=== PATIENT | female | born 1985 | race Caucasian/White ===

== ENCOUNTER → 2021-03-23 | Outpatient (CLI) | payer OTHER ==
--- NOTE | 2021-03-27 10:03 | MM ---
Reason for exam: clinical finding. Baseline mammogram. History: Patient is nulliparous. Physical Findings: Nurse Summary: 0.5cm nodule in the right breast and a 1.5cm nodule in the left breast (nurse dw). MG 3D Diag Mammo W/Cad SERENA Bilateral CC, MLO, and XCCL view(s) were taken. The breast tissue is heterogeneously dense. This may lower the sensitivity of mammography. 3.6cm circumscribed central isodense mass on the right. Palpable marker. Left upper outer quadrant 2.2cm lobulated mass. Suspect a 9mm low axillary tail node. These results were verbally communicated with the patient and result sheet given to the patient on 03/23/21. ASSESSMENT: Incomplete: need additional imaging evaluation, BI-RAD 0 RECOMMENDATION: Ultrasound of both breasts.
--- NOTE | 2021-03-27 10:06 | USB ---
Reason for exam: additional evaluation requested from abnormal screening. History: Patient is nulliparous. US Breast BILAT Right complete breast ultrasound includes all four quadrants, the retroareolar region and axilla. Finding demonstrates a 0.8 x 0.7 x 0.8cm mixed lesion at 3 o'clock, palpable, likely debris filled cyst, 6 month follow up recommended and a 3.3 x 1.1 x 2.4cm cystic, benign lesion at 8 o'clock. Left complete breast ultrasound includes all four quadrants, the retroareolar region and axilla. Finding demonstrates a 0.9 x 0.5 x 1.0cm cystic, benign cluster at 1 o'clock and a 2.5 x 1.3 x 2.0cm cystic lesion at 3 o'clock, palpable benign cyst. Multiple cystic areas bilaterally. These results were verbally communicated with the patient and result sheet given to the patient on 03/23/21. ASSESSMENT: Probably benign, BI-RAD 3 RECOMMENDATION: Ultrasound of the right breast in 6 months.
== END | disposition home or self-care (01) ==
LOC: RADMAMWWP 12:46
PROVIDERS: ATTEND Family Medicine
DX: N60.11 Diffuse cystic mastopathy of right breast (principal); N60.12 Diffuse cystic mastopathy of left breast; N63.10 Unspecified lump in the right breast, unspecified quadrant; N63.21 Unspecified lump in the left breast, upper outer quadrant
CPT/HCPCS: 77062; 77066

== ENCOUNTER 2021-09-27 20:20 | Emergency (ER) | payer OTHER ==
[2021-09-27] MEDS ORDERED: MORPHINE SULFATE 4 MG/ML SYRINGE IV STA (21:56)
[2021-09-27] MEDS ORDERED: ONDANSETRON 4 MG/2 ML VIAL IVP STA (21:56)
--- NOTE | 2021-09-27 22:07 | ED ---
Abdominal Pain HPI - General Chief Complaint: Abdominal Pain Stated Complaint: Left Side Abdominal Pain Time Seen by Provider: 09/27/21 21:21 Source: patient Mode of arrival: ambulatory Limitations: no limitations - History of Present Illness Initial Comments: This patient is a 36-year-old woman who presents with complaint of left flank pain that started around 3 PM while she was at rest. There was no inciting trauma. She describes it as being sharp, colicky, severe. She has not noted worsening or relieving factors. Patient states somewhat similar to previous episode a kidney stone. She also has had some nausea and has vomited. MD Complaint: flank pain Onset/Timin -: hour(s) Location: L flank Radiation: LLQ Migration to: no migration Severity: severe Quality: sharp Consistency: constant Improves With: nothing Worsens With: nothing Associated Symptoms: nausea, vomiting - Related Data LMP (females 10-50): this week Previous Rx's Medication Instructions Recorded HYDROcodone/APAP 5-325MG [[place] 1 tab PO Q4HR PRN 3 Days #18 tab 09/28/21 5-325] Ondansetron Odt [Zofran ODT] 4 mg PO Q8HR PRN #10 tab 09/28/21 Tamsulosin [Flomax] 0.4 mg PO DAILY #14 cap 09/28/21 Allergies Allergy/AdvReac Type Severity Reaction Status Date / Time No Known Allergies Allergy Verified 09/27/21 20:33 Review of Systems ROS Statement: Those systems with pertinent positive or pertinent negative responses have been documented in the HPI. ROS Other: All systems not noted in ROS Statement are negative. Constitutional: Denies: fever, chills Respiratory: Denies: cough, dyspnea Cardiovascular: Denies: chest pain, palpitations, edema Gastrointestinal: Reports: abdominal pain, nausea, vomiting. Denies: diarrhea, constipation Genitourinary: Denies: dysuria, hematuria Musculoskeletal: Denies: back pain Skin: Denies: rash Neurological: Denies: headache, weakness, numbness Past Medical History Past Medical History: Diabetes Mellitus Additional Past Medical History / Comment(s): DMII History of Any Multi-Drug Resistant Organisms: None Reported Past Surgical History: No Surgical Hx Reported Past Psychological History: No Psychological Hx Reported Smoking Status: Never smoker Past Alcohol Use History: None Reported Past Drug Use History: None Reported General Exam Limitations: no limitations General appearance: alert, in no apparent distress Head exam: Present: atraumatic, normocephalic Eye exam: Present: normal appearance. Absent: scleral icterus, conjunctival injection Neck exam: Present: normal inspection Respiratory exam: Present: normal lung sounds bilaterally. Absent: respiratory distress, wheezes, rales, rhonchi, stridor Cardiovascular Exam: Present: regular rate, normal rhythm, normal heart sounds. Absent: systolic murmur, diastolic murmur, rubs, gallop GI/Abdominal exam: Present: soft. Absent: distended, tenderness, guarding, rebound, rigid, mass Extremities exam: Present: normal inspection, normal capillary refill. Absent: pedal edema, calf tenderness Back exam: Present: normal inspection, CVA tenderness (L). Absent: CVA tenderness (R) Neurological exam: Present: alert Skin exam: Present: warm, dry, intact, normal color. Absent: rash Course Vital Signs 09/27/21 09/28/21 20:27 00:43 Temperature 97.8 F Pulse Rate 61 Respiratory 22 20 Rate Blood Pressure 135/75 129/79 O2 Sat by Pulse 100 Oximetry Medical Decision Making - Lab Data Result diagrams: 09/27/21 22:05 09/27/21 22:05 Lab Results 09/27/21 09/27/21 09/27/21 Range/Units 22:05 22:05 22:45 WBC 11.1 H (3.8-10.6) k/uL RBC 4.96 (3.80-5.40) m/uL Hgb 13.9 (11.4-16.0) gm/dL Hct 42.7 (34.0-46.0) % MCV 86.1 (80.0-100.0) fL MCH 27.9 (25.0-35.0) pg MCHC 32.4 (31.0-37.0) g/dL RDW 12.2 (11.5-15.5) % Plt Count 260 (150-450) k/uL MPV 7.8 Neutrophils % 88 % Lymphocytes % 9 % Monocytes % 2 % Eosinophils % 0 % Basophils % 0 % Neutrophils # 9.8 H (1.3-7.7) k/uL Lymphocytes # 1.0 (1.0-4.8) k/uL Monocytes # 0.3 (0-1.0) k/uL Eosinophils # 0.0 (0-0.7) k/uL Basophils # 0.0 (0-0.2) k/uL Sodium 133 L (137-145) mmol/L Potassium 3.6 (3.5-5.1) mmol/L Chloride 101 (98-107) mmol/L Carbon Dioxide 20 L (22-30) mmol/L Anion Gap 12 mmol/L BUN 17 (7-17) mg/dL Creatinine 0.83 (0.52-1.04) mg/dL Est GFR (CKD-EPI)AfAm >90 (>60 ml/min/1.73 sqM) Est GFR (CKD-EPI)NonAf >90 (>60 ml/min/1.73 sqM) Glucose 270 H (74-99) mg/dL Calcium 9.2 (8.4-10.2) mg/dL Total Bilirubin 0.5 (0.2-1.3) mg/dL AST 30 (14-36) U/L ALT 20 (4-34) U/L Alkaline Phosphatase 69 (38-126) U/L Total Protein 7.4 (6.3-8.2) g/dL Albumin 4.5 (3.5-5.0) g/dL Amylase 57 (30-110) U/L Lipase 57 (23-300) U/L Urine Color Yellow Urine Appearance Clear (Clear) Urine pH 5.5 (5.0-8.0) Ur Specific [place] 1.033 (1.001-1.035) Urine Protein Trace H (Negative) Urine Glucose (UA) 4+ H (Negative) Urine Ketones 4+ H (Negative) Urine Blood Large H (Negative) Urine Nitrite Negative (Negative) Urine Bilirubin Negative (Negative) Urine Urobilinogen <2.0 (<2.0) mg/dL Ur Leukocyte Esterase Negative (Negative) Urine RBC >182 H (0-5) /hpf Urine WBC 13 H (0-5) /hpf Ur Squamous Epith Cells 3 (0-4) /hpf Urine Bacteria Occasional H (None) /hpf Urine Mucus Rare H (None) /hpf Urine HCG, Qual (Not Detectd) Acetone, Qual Negative (Negative) 09/27/21 Range/Units 22:45 WBC (3.8-10.6) k/uL RBC (3.80-5.40) m/uL Hgb (11.4-16.0) gm/dL Hct (34.0-46.0) % MCV (80.0-100.0) fL MCH (25.0-35.0) pg MCHC (31.0-37.0) g/dL RDW (11.5-15.5) % Plt Count (150-450) k/uL MPV Neutrophils % % Lymphocytes % % Monocytes % % Eosinophils % % Basophils % % Neutrophils # (1.3-7.7) k/uL Lymphocytes # (1.0-4.8) k/uL Monocytes # (0-1.0) k/uL Eosinophils # (0-0.7) k/uL Basophils # (0-0.2) k/uL Sodium (137-145) mmol/L Potassium (3.5-5.1) mmol/L Chloride (98-107) mmol/L Carbon Dioxide (22-30) mmol/L Anion Gap mmol/L BUN (7-17) mg/dL Creatinine (0.52-1.04) mg/dL Est GFR (CKD-EPI)AfAm (>60 ml/min/1.73 sqM) Est GFR (CKD-EPI)NonAf (>60 ml/min/1.73 sqM) Glucose (74-99) mg/dL Calcium (8.4-10.2) mg/dL Total Bilirubin (0.2-1.3) mg/dL AST (14-36) U/L ALT (4-34) U/L Alkaline Phosphatase (38-126) U/L Total Protein (6.3-8.2) g/dL Albumin (3.5-5.0) g/dL Amylase (30-110) U/L Lipase (23-300) U/L Urine Color Urine Appearance (Clear) Urine pH (5.0-8.0) Ur Specific [place] (1.001-1.035) Urine Protein (Negative) Urine Glucose (UA) (Negative) Urine Ketones (Negative) Urine Blood (Negative) Urine Nitrite (Negative) Urine Bilirubin (Negative) Urine Urobilinogen (<2.0) mg/dL Ur Leukocyte Esterase (Negative) Urine RBC (0-5) /hpf Urine WBC (0-5) /hpf Ur Squamous Epith Cells (0-4) /hpf Urine Bacteria (None) /hpf Urine Mucus (None) /hpf Urine HCG, Qual Not Detected (Not Detectd) Acetone, Qual (Negative) Disposition Clinical Impression: Kidney stone Disposition: HOME SELF-CARE Condition: Good Instructions (If sedation given, give patient instructions): Kidney Stones (ED) Prescriptions: Tamsulosin [Flomax] 0.4 mg PO DAILY #14 cap HYDROcodone/APAP 5-325MG [[place] 5-325] 1 tab PO Q4HR PRN 3 Days #18 tab PRN Reason: Pain Ondansetron Odt [Zofran ODT] 4 mg PO Q8HR PRN #10 tab PRN Reason: Nausea Is patient prescribed a controlled substance at d/c from ED?: No Referrals: Geoff Leonard MD [Primary Care Provider] - 1-2 days Darryl Parish MD [STAFF PHYSICIAN] - 1-2 days
[2021-09-27 22:34] LABS: Basophils % (A) 0 %; Eosinophils % (A) 0 %; HCT 42.7 % (34.0-46.0); HGB 13.9 gm/dL (11.4-16.0); Lymphocytes % (A) 9 %; MCH 27.9 pg (25.0-35.0); MCHC 32.4 g/dL (31.0-37.0); MCV 86.1 fL (80.0-100.0); Mean Platelet Volume 7.8; Monocytes # (A) 0.3 k/uL (0-1.0); Monocytes % (A) 2 %; Neutrophils # (A) 9.8 k/uL (1.3-7.7); Neutrophils % (A) 88 %; Platelet Count 260 k/uL (150-450); RBC 4.96 m/uL (3.80-5.40); RDW 12.2 % (11.5-15.5); WBC 11.1 k/uL (3.8-10.6)
[2021-09-27 22:46] LABS: ALT 20 U/L (4-34); AST 30 U/L (14-36); African American GFR (CKD) >90 (>60 ml/min/1.73 sqM); Albumin 4.5 g/dL (3.5-5.0); Alkaline Phosphatase 69 U/L (38-126); Amylase 57 U/L (30-110); Anion Gap 12 mmol/L; Blood Urea Nitrogen 17 mg/dL (7-17); Calcium 9.2 mg/dL (8.4-10.2); Carbon Dioxide 20 mmol/L (22-30); Chloride 101 mmol/L (98-107); Glucose 270 mg/dL (74-99); Lipase 57 U/L (23-300); Non-African American GFR(CKD) >90 (>60 ml/min/1.73 sqM); Potassium 3.6 mmol/L (3.5-5.1); Sodium 133 mmol/L (137-145); Total Bilirubin 0.5 mg/dL (0.2-1.3); Total Protein 7.4 g/dL (6.3-8.2)
[2021-09-27] MEDS ORDERED: INSULIN REGULAR 100 UNIT/ML VIAL (IV) SQ STA (22:50)
[2021-09-27 22:57] LABS: Appearance,Urine Clear (Clear); Bacteria,Urine Occasional /hpf; Bilirubin,Urine Negative (Negative); Blood,Urine Large (Negative); Color,Urine Yellow; Leukocyte Esterase,Urine Negative (Negative); Mucus,Urine Rare /hpf; Nitrite,Urine Negative (Negative); PH, Urine 5.5 (5.0-8.0); Protein,Urine Trace (Negative); RBC,Urine >182 /hpf (0-5); Specific Gravity,Urine 1.033 (1.001-1.035); Squamous Epithelial Cell,Urine 3 /hpf (0-4); Urobilinogen,Urine <2.0 mg/dL (<2.0); WBC,Urine 13 /hpf (0-5)
[2021-09-27 23:05] LABS: Glucose,Urine (UA) 4+ (Negative); Ketones,Urine 4+ (Negative)
--- NOTE | 2021-09-28 00:13 | CT ---
EXAMINATION TYPE: CT abdomen pelvis wo con DATE OF EXAM: 09/27/2021 COMPARISON: None HISTORY: left side abdominal pain. rule out renal stone. no prior on PACS CT DLP: 581.5 mGycm Automated exposure control for dose reduction was used. Images obtained with no contrast from the diaphragm to the level of the pelvis. Lung bases are clear. No pleural effusion. Heart size is normal. No pericardial effusion. Liver spleen stomach pancreas gallbladder appear intact. The bile ducts are not dilated. There is no adrenal mass. Kidneys of normal size. There is left-sided hydronephrosis with 7 mm obstru cting calculus proximal left ureter. No sign of obstruction on the right side. No retroperitoneal reno nopathy. Appendix is posterior and appears normal. The bladder distends smoothly. There is a 4 cm cyst on the right ovary. Uterus is anteverted. No free fluid in the pelvis. No inguinal hernia. There is no mesenteric edema. No ascites or free air. No bowel obstruction. Lumbar vertebra. Tach. No compression fracture. There is normal alignment of the vertebra. Disc spaces are normal. Bony pelvis is intact. The hip joints are intact. IMPRESSION: Obstructing calculus proximal left ureter. Normal appendix. 4 cm right ovarian cyst.
[2021-09-28] MEDS ORDERED: ONDANSETRON 4 MG/2 ML VIAL IVP STA (00:29)
[2021-09-28] MEDS ORDERED: MORPHINE SULFATE 4 MG/ML SYRINGE IV STA (00:29)
[2021-09-28] MEDS ORDERED: TAMSULOSIN 0.4 MG CAP.ER.24H PO STA (00:49)
[2021-09-28] MEDS ORDERED: HYDROmorphone 0.5 MG/0.5 ML SYRINGE IVP STA (01:01)
[2021-09-28] MEDS ORDERED: ACET/COD 300 MG/30 MG STARTER PACK 6 TAB BTL PO STA (02:22)
[2021-09-28 03:15] VITALS: BP 106/74; PULSE 74; RESP 15; TEMP 97.5
== END 2021-09-28 03:05 | disposition home or self-care (01) ==
LOC: EC 20:20
DX: N13.2 Hydronephrosis with renal and ureteral calculous obstruction (principal); E11.9 Type 2 diabetes mellitus without complications
CPT/HCPCS: 36415; 80053; 82150; 82009; 83690; 85025; 81001; 81025; 87086; 74176; 99284; 96374; 96375 ×2; 96376 ×2; J2270; J2405

== ENCOUNTER 2021-09-29 14:09 | Day surgery (SDC) | payer OTHER ==
--- NOTE | 2021-09-29 13:26 | P.GSHP ---
History of Present Illness H&P Date: 09/29/21 Chief Complaint: Left renal colic The patient is a 36-year-old white female with no prior history of urolithiasis. On 09/27/2021 she experienced acute onset of left flank pain and left lower quadrant abdominal pain. CT scan of the abdomen and pelvis revealed left hydronephrosis due to a 7 mm left proximal ureteral calculus. Her symptoms have been intractable since that time. KUB x-ray today suggests that the calculus is migrated to the distal ureter. The pros and cons of medical expulsion therapy, ESWL, and ureteroscopic stone manipulation have been reviewed with the patient in detail. She has elected to undergo the latter. - Constitutional Constitutional: Reports chills, Denies fever - Gastrointestinal Gastrointestinal: Reports nausea, Reports vomiting - Genitourinary (Female) Genitourinary: Reports flank pain, Reports kidney stones, Denies hematuria Past Medical History Past Medical History: Diabetes Mellitus Additional Past Medical History / Comment(s): DMII History of Any Multi-Drug Resistant Organisms: None Reported Past Surgical History: No Surgical Hx Reported Past Psychological History: No Psychological Hx Reported Smoking Status: Never smoker Past Alcohol Use History: None Reported Past Drug Use History: None Reported Medications and Allergies Home Medications Medication Instructions Recorded Confirmed Type HYDROcodone/APAP 5-325MG [[place] 1 tab PO Q4HR PRN 3 Days #18 tab 09/28/21 Rx 5-325] HYDROcodone/APAP 5-325MG [[place] 5] 1 each PO Q6HR PRN #12 tab 09/28/21 Rx Ondansetron Odt [Zofran ODT] 4 mg PO Q8HR PRN #10 tab 09/28/21 Rx Ondansetron Odt [Zofran Odt] 4 mg PO Q8HR PRN #10 tab 09/28/21 Rx Tamsulosin [Flomax] 0.4 mg PO DAILY #14 cap 09/28/21 Rx Tamsulosin [Flomax] 0.4 mg PO DAILY #7 cap 09/28/21 Rx Allergies Allergy/AdvReac Type Severity Reaction Status Date / Time No Known Allergies Allergy Verified 09/27/21 20:33 Surgical - Exam - General well developed, well nourished, moderate distress - Neck no masses, trachea midline - Respiratory normal respiratory effort - Abdomen Abdomen: soft, non tender, no guarding, no rigid, no rebound - Psychiatric oriented to time, oriented to person, oriented to place, speech is normal, memory intact Results - Imaging Abdominal x-ray: report reviewed, image reviewed CT scan - abdomen: report reviewed, image reviewed Assessment and Plan (1) Calculus of ureter Status: Acute Code(s): N20.1 - CALCULUS OF URETER SNOMED Code(s): 75564501 Plan: Cystoscopy, left retrograde pyelogram. If indeed the calculus has migrated to the distal ureter, left ureteroscopy with laser lithotripsy, possible stone basketing, left ureteral stent insertion will be performed. Conversely, if the calculus remains within the proximal ureter, she will simply undergo left ureteral stent insertion. The procedure has been reviewed in detail with the patient. She has been made aware of potential risks, which include anesthesia, bleeding, infection, inability to remove the calculus, and ureteral injury.
[2021-09-29 14:47] LABS: Glucose,Whole Blood 204 mg/dL (70-110)
[2021-09-29] MEDS ORDERED: ONDANSETRON 4 MG/2 ML VIAL ONE (14:49)
[2021-09-29] MEDS ORDERED: LACTATED RINGERS 1,000 ML IV ONE ×2 (14:52→16:31)
[2021-09-29] MEDS ORDERED: INSULIN ASPART (NovoLOG) 100 UNIT/ML VIAL SQ ONE (14:58)
[2021-09-29] MEDS ORDERED: SCOPOLAMINE 1 MG/72 HR PATCH TRANSDERM ONE (14:58)
[2021-09-29] MEDS ORDERED: DEXAMETHASONE SOD PHOSPHATE 4 MG/ML 1 ML VIAL IV ONE (14:58)
[2021-09-29] MEDS ORDERED: SUCCINYLCHOLINE CHLORIDE 100 MG/5 ML SYR IV ONE (15:41)
[2021-09-29] MEDS ORDERED: KETOROLAC 15 MG/ML 1 ML VIAL ONE (15:41)
[2021-09-29] MEDS ORDERED: MIDAZOLAM 2 MG/2 ML VIAL ONE (15:41)
[2021-09-29] MEDS ORDERED: LIDOCAINE 2% INJ 20 MG/ML (2 ML VIAL) ONE (15:41)
[2021-09-29] MEDS ORDERED: PROPOFOL 10 MG/ML 20 ML VIAL IV ONE (15:41)
[2021-09-29] MEDS ORDERED: fentaNYL (PF) 50 MCG/ML 2 ML AMP ONE (15:41)
[2021-09-29] MEDS ORDERED: IOPAMIDOL-300 50ML BTL MISCELLANE ONE (16:22)
--- NOTE | 2021-09-29 16:57 | FL ---
Fluoroscopy History: Cystoscopy FLUORO TIME 17SECONDS
--- NOTE | 2021-09-29 16:58 | P.OP ---
Date of Procedure: 09/29/21 Preoperative Diagnosis: Left ureteral calculus Postoperative Diagnosis: Same Procedure(s) Performed: Cystoscopy, left ureteroscopy with Holmium laser lithotripsy and stone basketing, left ureteral stent insertion Anesthesia: AMANDA Surgeon: Darryl Parish Estimated Blood Loss (ml): 0 IV fluids (ml): 700 Pathology: other (Calculus fragments, sent for chemical analysis) Condition: stable Disposition: PACU Indications for Procedure: The patient is a 36-year-old white female with no prior history of urolithiasis. On 09/27/2021 she experienced acute onset of left flank pain and left lower quadrant abdominal pain. CT scan of the abdomen and pelvis revealed left hydronephrosis due to a 7 mm left proximal ureteral calculus. Her symptoms have been intractable since that time. KUB x-ray today suggests that the calculus is migrated to the distal ureter. The pros and cons of medical expulsion therapy, ESWL, and ureteroscopic stone manipulation have been reviewed with the patient in detail. She has elected to undergo the latter. 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 Left distal ureteral calculus, fragmented and removed completely. Description of Procedure: The patient was taken to the operating room and placed in the dorsolithotomy position, with legs supported in Rj stirrups. The external genitalia was prepped and draped sterilely. The 30 lens was used to introduce the 21-Cymro Montoya cystoscopic sheath through the urethra and into the bladder under direct vision. The bladder was examined in its entirety. The right ureteral orifice appeared normal, and clear urine effluxed from it. The left ureteral orifice was extremely small and difficult to identify. She appears to have a an orthotopic ureterocele on the left. No tumors or foreign bodies were seen. An angle-tip 0.035 inch Glidewire was passed through the cystoscope. Multiple attempts were made to identify and cannulate the left ureteral orifice, but these attempts were unsuccessful. The Montoya semirigid ureteroscope was advanced into the bladder, and a 0.035 inch Glidewire was passed through the ureteroscope. The anticipated area of the left ureteral orifice was carefully inspected, and ultimately a small opening was identified through which the Glidewire was advanced. The Glidewire passed beyond the calculus and up to the left renal pelvis. A 15-Cymro balloon dilating catheter (4 cm length) was used to dilate the ureteral orifice and the intramural portion of the ureter. It was then possible to advance the ureteroscope up to the level of the calculus. The 365 micron Holmium laser probe was passed through the ureteroscope, and lithotripsy was performed. After fragmenting the calculus, a 1.9-Cymro nitinol basket was used to remove all of the calculus fragments from the ureter. These were saved and sent for chemical analysis. Inspection of the ureter revealed no residual calculus fragments. There was no evidence of ureteral perforation. After removing the ureteroscope, the cystoscope was replaced into the bladder. The Glidewire was passed up to the left renal pelvis, and a 24 cm, 4.8-Cymro double-J ureteral stent was placed over the wire. Proper stent positioning was verified fluoroscopically and endoscopically. The bladder was emptied and the cystoscope removed. The patient tolerated the procedure well and was taken to the recovery room in stable condition. [facility] [place] Report: Procedure Acuity: Urgent Stone Size and Location: 7 mm, left distal ureter Ureteral Dilation: Balloon Dilation Ureteral Access Sheath Used: No Stone Sent for Analysis: Yes All Stones/Fragments Were Removed with a Basket: Yes Complications: No Preoperative Antibiotics Given: Yes Stent Placed: Yes If Stent Placed, Was String Left Attached: No If Stent Placed, When is it to be Removed: 2 weeks Discharge Medications: Tamsulosin, oxybutynin chloride
[2021-09-29 17:03] VITALS: RESP 16; TEMP 97.6
[2021-09-29 17:21] LABS: Glucose,Whole Blood 167 mg/dL (70-110)
[2021-09-29 18:21] VITALS: BP 122/73; PULSE 87
== END 2021-09-29 18:39 | disposition home or self-care (01) ==
LOC: OR 14:09
PROVIDERS: ATTEND Urology
DX: N13.2 Hydronephrosis with renal and ureteral calculous obstruction (principal); E11.9 Type 2 diabetes mellitus without complications; Z79.899 Other long term (current) drug therapy; Z79.4 Long term (current) use of insulin
CPT/HCPCS: 81025; 82365; 52356; C2625; C1769; J2250; J1100; J0690; J3010; J1885; J0330; J2704; Q9967; J2001

== ENCOUNTER → 2021-09-29 | Outpatient (CLI) | payer OTHER ==
--- NOTE | 2021-09-29 12:09 | XR ---
KUB HISTORY: Left-sided ureteral stone, N [address] scan 09/27/2021 There is a insulin pump situated over the left hemiabdomen, pump and dilated loops of bowel could obs cure underlying detail. Allograft suspect the mid ureteral calculus on the left has migrated to the l evel the ureterovesical orifice and measures approximately 7 mm in size. There are phleboliths within the left hemipelvis. No evident bowel obstruction or pneumoperitoneum. There is overlying artifact. IMPRESSION: Migration of ureteral calculus distally is suspected
== END | disposition home or self-care (01) ==
LOC: RADXRMAIN 11:19
PROVIDERS: ATTEND Urology
DX: N20.1 Calculus of ureter (principal)
CPT/HCPCS: 74018

== ENCOUNTER → 2021-11-14 | Outpatient (CLI) | payer OTHER ==
--- NOTE | 2021-11-14 16:24 | US ---
EXAMINATION TYPE: US kidneys/renal and bladder DATE OF EXAM: 11/14/2021 COMPARISON: CT 09/27/2021 CLINICAL HISTORY: N20.1 CALCULUS OF URETER. Left ureter stone, hydronephrosis EXAM MEASUREMENTS: Right Kidney: 10.9 x 5.1 x 4.5 cm Left Kidney: 11.8 x 4.5 x 5.0 cm Right Kidney: No obvious stones, mild hydronephrosis seen Left Kidney: No hydronephrosis or masses seen Bladder: Distended, Bilateral Jets seen: Yes There is no evidence for hydronephrosis at this point in time. No nephrolithiasis is seen. No karen s are identified. The urinary bladder is anechoic. Bilateral ureteral jets are seen. IMPRESSION: Mild right hydronephrosis No evidence for obstructive stone. No evidence of left obstructive uropathy.
== END | disposition home or self-care (01) ==
LOC: RADUSWWP 15:37
PROVIDERS: ATTEND Urology
DX: N13.2 Hydronephrosis with renal and ureteral calculous obstruction (principal)
CPT/HCPCS: 76770

== ENCOUNTER → 2021-12-06 | Outpatient (CLI) | payer OTHER ==
--- NOTE | 2021-12-06 09:02 | USB ---
Reason for Exam: Follow-up at short interval from prior study. Patient History: Menarche at age 11. Patient has no children. Risk Values: Gabby 5 year model risk: 0.4%. NCI Lifetime model risk: 11.2%. Technique: Method: Targeted. Prior Study Comparison: 03/23/2021 Bilateral Diagnostic Mammogram, [facility]. Findings: The lower inner quadrant of the right breast was scanned. Complex cyst at the right 3:00 position is again noted however smaller in size and currently measures 5 x 4 mm versus 8 x 7 mm previously. Continued six-month follow-up is advised. No additional lesions seen.. Overall Assessment: Probably benign, BI-RAD 3 Management: Diagnostic Breast Ultrasound of the right breast in 6 months. A clinical breast exam by your physician is recommended on an annual basis and results should be correlated with mammographic findings. Electronically signed and approved by: Seamus Jacobsen M.D. Radiologis
== END | disposition home or self-care (01) ==
LOC: RADMAMWWP 08:16
PROVIDERS: ATTEND Family Medicine
DX: N60.01 Solitary cyst of right breast (principal)

== ENCOUNTER → 2022-07-02 | Outpatient (CLI) | payer OTHER ==
--- NOTE | 2022-07-02 08:27 | USB ---
Reason for Exam: Follow-up at short interval from prior study. Patient History: Menarche at age 11. Patient has no children. Risk Values: Gabby 5 year model risk: 0.5%. NCI Lifetime model risk: 11.2%. Technique: Method: Targeted. Prior Study Comparison: 03/23/2021 Bilateral Diagnostic Mammogram, [facility]. Findings: The lower inner quadrant of the right breast, the axilla of the right breast and the retroareolar of the right breast were scanned. Stable complex cystic lesion right 3:00 measuring 5 x 4 mm versus 5 x 4 mm previously. No solid mass is detected at this time.. Overall Assessment: Probably benign, BI-RAD 3 Management: Diagnostic Breast Ultrasound of the right breast in 6 months. A clinical breast exam by your physician is recommended on an annual basis and results should be correlated with mammographic findings. This exam should not preclude additional follow-up of suspicious palpable abnormalities. Results were given to the patient verbally at the time of exam. Electronically signed and approved by: Seamus Jacobsen M.D. Radiologis
== END | disposition home or self-care (01) ==
LOC: RADUSWWP 07:34
PROVIDERS: ATTEND Family Medicine
DX: R92.8 Other abnormal and inconclusive findings on diagnostic imaging of breast (principal)

== ENCOUNTER → 2023-01-04 | Outpatient (CLI) | payer OTHER ==
--- NOTE | 2023-01-04 08:22 | USB ---
Reason for Exam: Follow-up at short interval from prior study. Patient History: Menarche at age 11. Patient has no children. Risk Values: Gabby 5 year model risk: 0.5%. NCI Lifetime model risk: 11.2%. Technique: Method: Targeted. Prior Study Comparison: 03/23/2021 Bilateral Diagnostic Mammogram, [facility]. Findings: The lower inner quadrant of the right breast and the retroareolar of the right breast were scanned. 2 small to characterize hypoechoic lesion right breast 3:00 position 3 cm from the nipple measuring 4 x 3 mm versus 5 x 4 mm previously. Simple cyst right 7:00 position measuring 1.4 cm.. Overall Assessment: Probably benign, BI-RAD 3 Management: Diagnostic Breast Ultrasound of the right breast in 6 months. A clinical breast exam by your physician is recommended on an annual basis and results should be correlated with mammographic findings. This exam should not preclude additional follow-up of suspicious palpable abnormalities. Results were given to the patient verbally at the time of exam. Electronically signed and approved by: Seamus Jacobsen M.D. Radiologis
== END | disposition home or self-care (01) ==
LOC: RADUSWWP 07:38
PROVIDERS: ATTEND Family Medicine
DX: N60.01 Solitary cyst of right breast (principal); R93.89 Abnormal findings on diagnostic imaging of other specified body structures

== ENCOUNTER → 2023-07-26 | Outpatient (CLI) | payer OTHER ==
--- NOTE | 2023-07-26 08:18 | MM ---
Reason for Exam: Clinical finding. Last mammogram was performed 2 year(s) and 4 month(s) ago. Indicated Problems: Lump or thickening of the right side for 2 Year(s). Patient History: Menarche at age 11. Patient has no children. Risk Values: Gabby 5 year model risk: 0.6%. NCI Lifetime model risk: 11.1%. Prior Study Comparison: 03/23/2021 Bilateral Diagnostic Mammogram, [facility]. 03/23/2021 Bilateral Diagnostic Ultrasound, [facility]. 12/06/2021 Right US breast limited RT, [facility]. 07/02/2022 Right US breast limited RT, [facility]. 01/04/2023 Right US breast limited RT, [facility]. Tissue Density: The breasts are heterogeneously dense, which may obscure small masses. Findings: Analyzed By CAD. Underlying bilateral circumscribed nodularity. The nodule on the left, laterally is smaller now measuring 1.1 cm versus 1.8 cm, previously. There are 3-4 nodules on the right side now demonstrated. The dominant nodule, suspected 12:00 position is smaller 1.7 cm now versus 3.6 cm, previously. However, new nodules are now apparent not well seen previously. No suspicious microcalcification or other discrete abnormality seen. Overall Assessment: Incomplete: need additional imaging evaluation, BI-RAD 0 Management: Diagnostic Breast Ultrasound of the right breast. Electronically signed and approved by: Parvin Maicel M.D. Radiologist
--- NOTE | 2023-07-26 08:45 | USB ---
Reason for Exam: Follow-up at short interval from prior study. Patient History: Menarche at age 11. Patient has no children. Risk Values: Gabby 5 year model risk: 0.6%. NCI Lifetime model risk: 11.1%. Technique: Method: Whole Breast Handheld. Doppler: Color. Patient Position: Supine. Prior Study Comparison: 03/23/2021 Bilateral Diagnostic Mammogram, [facility]. 12/06/2021 Right US breast limited RT, [facility]. 07/02/2022 Right US breast limited RT, [facility]. 01/04/2023 Right US breast limited RT, [facility]. Findings: The whole breast of the right breast, the axilla of the right breast and the retroareolar of the right breast were scanned. A complete US of all four quadrants of the breast , axilla, and retro-areolar region were reviewed. Numerous cysts are present throughout the breast, largest at the 10:00 position, 7 cm from the nipple measuring 3.2 x 2.7 x 1.1 cm versus 3.3 cm, previously. Within the axilla, there is ar borderline sized lymph node measuring 2.3 x 1.7 x 0.6 cm. Mild cortical thickening up to 3.5 mm. Probably reactive/post inflammatory. Short interval follow-up to reassess. Overall Assessment: Probably benign, BI-RAD 3 Management: Diagnostic Breast Ultrasound of the right breast in 3 months. For the probable reactive/post inflammatory right axillary lymph node. If any of the patient's cysts become symptomatic, percutaneous aspiration can be performed. A clinical breast exam by your physician is recommended on an annual basis and results should be correlated with mammographic findings. This exam should not preclude additional follow-up of suspicious palpable abnormalities. Results were given to the patient verbally at the time of exam. Electronically signed and approved by: Parvin Maciel M.D. Radiologist
== END | disposition home or self-care (01) ==
LOC: RADMAMWWP 07:51
PROVIDERS: ATTEND Family Medicine
DX: R92.333 Mammographic heterogeneous density, bilateral breasts (principal); N63.10 Unspecified lump in the right breast, unspecified quadrant
CPT/HCPCS: 77062; 77066